=== PATIENT | female | born 1980 | race Caucasian/White ===

== ENCOUNTER 2017-05-03 19:59 | Inpatient (IN) | payer BC ==
[~2017-05-03] VITALS: Ht 167.6 cm; Wt 89.8 kg
[~2017-05-03 19:59] MED LIST: HEMOTAB PO; PREN1CAP7 PO
[2017-05-03 21:27] LABS: BLOOD, URINE NEG (NEG); COMMENT (UR) CULT NOT INDICATED; CULTURE IF INDICATED CULT NOT INDICATED; GLUCOSE,URINE NEG (NEG); KETONE, URINE NEG (NEG); MUCUS URINE FEW /lpf (OCC); NITRITE,URINE NEG (NEG); SQUAMOUS EPITHELIAL CELL URINE 1 /hpf (0-5); URINE COLOR YELLOW (YELLW/STRAW)
[2017-05-03 21:29] LABS: AUTOMATED NEUTROPHIL # 8.1 TH/MM3 (1.8-7.7); BASOPHIL % 0.3 % (0.0-2.0); EOSINOPHIL # 0.1 TH/MM3 (0-0.4); EOSINOPHIL % 0.5 % (0.0-4.0); HEMATOCRIT 35.7 % (35.0-46.0); HEMO FLAGS DIFF FINAL; LYMPHOCYTE # 2.7 TH/MM3 (1.0-4.8); MEAN CELL VOLUME 91.2 FL (80.0-100.0); MEAN CORPUSCULAR HEMOGLOBIN 31.6 PG (27.0-34.0); MEAN CORPUSCULAR HGB CONC 34.7 % (32.0-36.0); MONO % 7.2 % (0.0-8.0); PLATELET COUNT 189 TH/MM3 (150-450); RED BLOOD COUNT 3.92 MIL/MM3 (4.00-5.30); RED CELL DISTRIBUTION WIDTH 13.7 % (11.6-17.2); WHITE BLOOD COUNT 11.7 TH/MM3 (4.0-11.0)
[2017-05-03] MEDS ORDERED: LACTATED RINGER'S 1000 ML INJ 1,000 ML IV SCH (21:33)
[2017-05-03] MEDS ORDERED: LACTATED RINGER'S 1000 ML INJ 1,000 ML IV PRN (21:33)
--- NOTE | 2017-05-03 21:33 | HHI.HP ---
HPI Chief Complaint 40 weeks and 5 days Date Seen: May 03, 2017 Time Seen: 21:25 Travel History International Travel<30 Days: No Contact w/Intl Traveler<30Days: No Known Affected Area: No History of Present Illness HPI Pt is a 36 yo who presents for elective IOL o/a post-term. EDC 04/28/2017 . care with [facility]. previously uncomplicated. GBS negative. Pt reports active vaginal bleeding. No vaginal bleeding or discharge. Weeks Gestation: 40 Para: 1 : 3 History Past Medical History Medical History: Denies Significant Hx Obstetric History Obstetric History Prior term uncomplicated resulting in vaginal delivery Previous 1st trimester miscarriage Past Surgical History Surgical History: No Previous Surgery Family History Family History: Negative Social History Alcohol Use: No Tobacco Use: No Substance Abuse: No Allergies-Medications (Allergen,Severity, Reaction): Coded Allergies: No Known Allergies (Unverified Adverse Reaction, Unknown, 04/29/17) Home Meds Active Scripts Ferrous Fumarate-Folic Acid (Hemocyte-F) 324-1 Mg Tab, 1 TAB PO DAILY for Nutritional Supplement for 30 Days, #30 TAB 1 Refill Prov:Brooke Patricio CNM [facility] 04/18/17 W/O Vit A W/ Fe Fumar (Citranatal Dovray) 27-1-260 Mg Cap, 1 CAP PO DAILY for Nutritional Supplement, #30 CAP 11 Refills Prov:Saida Hsieh [facility] 12/06/16 Review of Systems Except as stated in HPI: all other systems reviewed are Neg Physical Exam Narrative GENERAL: Well-nourished, well-developed patient. SKIN: Warm and dry. HEAD: Normocephalic and atraumatic. EYES: No scleral icterus. No injection or drainage. ENT: No nasal drainage noted. Mucous membranes pink. Airway patent. NECK: Supple, trachea midline. No JVD. CARDIOVASCULAR: Regular rate and rhythm without murmurs, gallops, or rubs. RESPIRATORY: Breath sounds equal bilaterally. No accessory muscle use. BREASTS: Bilateral exam showed no masses , no retractions, no nipple discharge. ABDOMEN/GI: Abdomen soft, non-tender, bowel sounds present, no rebound, no guarding Gravid to [40] weeks size Fundal Height: [40] GENITOURINARY: External Genitalia: intact and normal in appearance BUS glands: [wnl] Cervix: [soft] Dilatation: [2cm] Effacement: [60%] Station: [-3] Presentation: [vertex] Membranes: [ruptured] Uterine Contractions: [none] FHT's: Category: [1] Baseline: [120s] Reactive: [-] Variability: [good] Decels: [none] EXTREMITIES: No cyanosis or edema. BACK: Nontender without obvious deformity. No CVA tenderness. NEUROLOGICAL: Awake and alert. Motor and sensory grossly within normal limits. Five out of 5 muscle strength in all muscle groups. Normal speech. Caprini VTE Risk Assessment Caprini VTE Risk Assessment: No/Low Risk (score <= 1) Caprini Risk Assessment Model Point Value = 1 Point Value = 2 Point Value = 3 Point Value = 5 Age 41-60 Minor surgery BMI > 25 kg/m2 Swollen legs Varicose veins or History of unexplained or recurrent spontaneous Oral contraceptives or hormone replacement Sepsis (< 1 month) Serious lung disease, including pneumonia (< 1 month) Abnormal pulmonary function Acute myocardial infarction Congestive heart failure (< 1 month) History of inflammatory bowel disease Medical patient at bed rest Age 61-74 Arthroscopic surgery Major open surgery (> 45 min) Laparoscopic surgery (> 45 min) Malignancy Confined to bed (> 72 hours) Immobilizing plaster cast Central venous access Age >= 75 History of VTE Family history of VTE Factor V Leiden Prothrombin [id number] Lupus anticoagulant Anticardiolipin antibodies Elevated serum homocysteine Heparin-induced thrombocytopenia Other congenital or acquired thrombophilia Stroke (< 1 month) Elective arthroplasty Hip, pelvis, or leg fracture Acute spinal cord injury (< 1 month) Prophylaxis Regimen Total Risk Factor Score Risk Level Prophylaxis Regimen 0-1 Low Early ambulation 2 Moderate Order ONE of the following: *Sequential Compression Device (SCD) *Heparin 5000 units SQ BID 3-4 Higher Order ONE of the following medications: *Heparin 5000 units SQ TID *Enoxaparin/Lovenox 40 mg SQ daily (WT < 150 kg, CrCl > 30 mL/min) *Enoxaparin/Lovenox 30 mg SQ daily (WT < 150 kg, CrCl > 10-29 mL/min) *Enoxaparin/Lovenox 30 mg SQ BID (WT < 150 kg, CrCl > 30 mL/min) AND/OR *Sequential Compression Device (SCD) 5 or more Highest Order ONE of the following medications: *Heparin 5000 units SQ TID (Preferred with Epidurals) *Enoxaparin/Lovenox 40 mg SQ daily (WT < 150 kg, CrCl > 30 mL/min) *Enoxaparin/Lovenox 30 mg SQ daily (WT < 150 kg, CrCl > 10-29 mL/min) *Enoxaparin/Lovenox 30 mg SQ BID (WT < 150 kg, CrCl > 30 mL/min) AND *Sequential Compression Device (SCD) Data Data Vital Signs Reviewed: Yes Orders Orders Complete Blood Count With Diff (05/03/17 21:02) Abo/Rh Blood Type (05/03/17 21:02) Hold Clot (05/03/17 21:02) Urinalysis - C+S If Indicated (05/03/17 21:02) Specimen To Be Collected PRN (05/03/17 21:02) Drug Screen, Random Urine (05/03/17 21:02) Specimen To Be Collected PRN (05/03/17 21:02) Group B Strep: Negative Labs Laboratory Tests Test 05/03/17 20:15 Assessment/Plan Assessment and Plan 36 yo presents for IOL o/a post-term /maternal status reassuring. Cervix favorable. Will start Pitocin per protocol. AROM when able. May have epidural. Francisco Vee MD May 03, 2017 21:33
[2017-05-03] MEDS ORDERED: OXYTOCIN 30 UNITS-500ML PREMIX 500 ML IV SCH (21:45)
[2017-05-03] MEDS ORDERED: LIDOCAINE HCL 1% 50 ML VIAL I-DERMAL PRN (21:45)
[2017-05-03] MEDS ORDERED: LIDOCAINE HCL 1% 50 ML VIAL INFIL PRN (21:45)
[2017-05-03] MEDS ORDERED: SODIUM CHLORID 0.9% 500 ML INJ 500 ML IV PRN (21:45)
[2017-05-03] MEDS ORDERED: CITRIC ACID-SODIUM CITRATE LIQ 30 ML UDC PO SCH (21:45)
[2017-05-03] MEDS ORDERED: OXYTOCIN 30 UNITS-500ML PREMIX 500 ML IV ONE (21:45)
[2017-05-03] MEDS ORDERED: MINERAL OIL 10 ML VIAL TOPICAL PRN (21:45)
[2017-05-03] MEDS ORDERED: ONDANSETRON HCL 4 MG/2 ML VIAL IV PUSH PRN (21:45)
[2017-05-03] MEDS ORDERED: SODIUM CHLOR 0.9% 1000 ML INJ 1,000 ML IV PRN (21:53)
[2017-05-03 22:17] VITALS: BP 104/74; PULSE 88
[2017-05-03 22:23] VITALS: RESP 16; TEMP 98.8
[2017-05-03 22:30] VITALS: BP 108/68; PULSE 89
[2017-05-03 23:00] VITALS: BP 111/66; PULSE 90
[2017-05-03 23:01] VITALS: RESP 16
[2017-05-03 23:30] VITALS: BP 106/61; PULSE 90
[2017-05-04] VITALS (66 sets, daily range): BP systolic 83–143; BP diastolic 47–86; PULSE 76–131; RESP 12–26; TEMP 97.9–98.6; O2SAT 98–100
[2017-05-04] MEDS ORDERED: fentaNYL 2MCG-BUPIV 0.125% INJ 100 ML ONE (03:36)
[2017-05-04] MEDS ORDERED: ePHEDrine/NS 25 MG/5 ML SYR ONE (03:36)
[2017-05-04] MEDS ORDERED: BUPIVACAINE HCL PF 0.25% 10 ML VIAL ONE (03:43)
[2017-05-04] MEDS ORDERED: fentaNYL 2MCG-BUPIV 0.125% 100 ML EPIDURAL SCH (05:15)
[2017-05-04] MEDS ORDERED: NO SYSTEM NARCOTICS PRN (05:15)
[2017-05-04] MEDS ORDERED: DO NOT ADMINISTER ANTICOAGULANTS PRN (05:15)
[2017-05-04] MEDS ORDERED: ePHEDrine/NS 25 MG/5 ML SYR IV PUSH PRN (05:15)
[2017-05-04] MEDS ORDERED: ceFAZolin INJ 1,000 MG VIAL ONE (05:36)
--- NOTE | 2017-05-04 05:36 | PD.LABORPN ---
Subjective Subjective Pt comfortable after epidural. Objective Vital Signs Vital Signs Date Time Temp Pulse Resp B/P (MAP) Pulse Ox O2 Delivery O2 Flow Rate FiO2 05/04/17 05:18 92 105/65 (78) 05/04/17 05:15 85 100/58 (72) 05/04/17 05:15 83 05/04/17 05:12 82 109/58 (75) 05/04/17 05:10 102 05/04/17 05:09 93 102/54 (70) 05/04/17 05:06 106 117/70 (86) 05/04/17 05:05 81 05/04/17 05:03 78 115/73 (87) 05/04/17 05:00 80 05/04/17 05:00 81 110/70 (83) 05/04/17 04:57 81 114/76 (89) 05/04/17 04:55 86 05/04/17 04:54 83 117/74 (88) 05/04/17 04:52 79 108/47 (67) 05/04/17 04:50 85 05/04/17 04:48 93 110/74 (86) 05/04/17 04:45 80 111/64 (80) 05/04/17 04:45 78 05/04/17 04:42 91 114/63 (80) 05/04/17 04:40 103 05/04/17 04:39 97 114/72 (86) 05/04/17 04:36 114 105/75 (85) 05/04/17 04:35 86 05/04/17 04:33 106 102/65 (77) 05/04/17 04:30 90 106/68 (81) 05/04/17 04:30 119 05/04/17 04:27 131 99/60 (73) 05/04/17 04:25 109 05/04/17 04:24 119 104/64 (77) 05/04/17 04:21 81 122/74 (90) 05/04/17 04:20 81 05/04/17 04:18 127 100/59 (73) 05/04/17 04:17 76 127/76 (93) 05/04/17 04:15 103 122/75 (91) 05/04/17 04:15 84 05/04/17 04:13 105 112/72 (85) 05/04/17 04:12 90 85/52 (63) 05/04/17 04:11 93 105/67 (80) 05/04/17 04:10 110 05/04/17 04:10 99 83/54 (64) 05/04/17 04:09 116 105/61 (76) 05/04/17 04:06 98 143/76 (98) 05/04/17 04:05 104 05/04/17 04:01 85 132/86 (101) 05/04/17 04:00 87 05/04/17 03:30 94 118/71 (87) 05/04/17 03:01 85 116/55 (75) 05/04/17 02:53 97.9 16 05/04/17 02:30 81 113/71 (85) 05/04/17 02:00 83 109/67 (81) 05/04/17 01:14 82 106/66 (79) 05/04/17 01:00 78 93/54 (67) 05/04/17 00:30 82 111/61 (78) 05/04/17 00:00 80 94/60 (71) 05/03/17 23:30 90 106/61 (76) 05/03/17 23:01 16 05/03/17 23:00 90 111/66 (81) 05/03/17 22:30 89 108/68 (81) 05/03/17 22:23 98.8 16 05/03/17 22:17 88 104/74 (84) Objective Pelvic Exam: Cervix: [soft] Dilatation: [5cm] Effacement: [80%] Station: [-2] Presentation: [vertex] Membranes: [intact or ruptured] Uterine Contractions: [every 4 minutes] FHT's: Category: [2] Baseline: [130s] Reactive: [-] Variability: [good] Decels: [repetitive late decelerations, despite discontinuing Pitocin, nasal Oxygen,position change,amnioinfusion.] Weeks Gestation: 40 Assessment/Plan Assessment and Plan 36 yo post-term labor. NRFHR with persistent Cat 2 tracing despite intrapartum resuscitation. Will proceed to primary C section Francisco Vee MD May 04, 2017 05:36
[2017-05-04] MEDS ORDERED: EPIDURAL-NO SYSTEMIC NARCOTICS PRN (06:40)
[2017-05-04] MEDS ORDERED: EPIDURAL-DIPHENHYDRAMINE HCL 50 MG/ML VIAL IV PUSH PRN (06:40)
[2017-05-04] MEDS ORDERED: EPIDURAL-NALOXONE HCL 0.4 MG/ML AMP IV PUSH PRN (06:40)
[2017-05-04] MEDS ORDERED: EPIDURAL-DO NOT ADMINISTER ANTICOAGULANTS PRN (06:40)
[2017-05-04] MEDS ORDERED: EPIDURAL-DIPHENHYDRAMINE HCL 50 MG CAP PO PRN (06:40)
[2017-05-04] MEDS ORDERED: ACETAMINOPHEN 1000 MG/100 ML 100 ML IV ONE ×2 (07:00→07:01)
[2017-05-04] MEDS ORDERED: OXYTOCIN 30 UNITS-500ML PREMIX 500 ML IV ONE (07:30)
[2017-05-04] MEDS ORDERED: SODIUM CHLORIDE 0.9% FLUSH 10 ML FLUSH IV FLUSH PRN ×2 (07:30)
[2017-05-04] MEDS ORDERED: KETOROLAC TROMETHAMINE 60 MG/2 ML (IM) VIAL IM PRN (07:30)
[2017-05-04] MEDS ORDERED: ZOLPIDEM TARTRATE 5 MG TAB PO PRN (07:30)
[2017-05-04] MEDS ORDERED: ACETAMINOPHEN 325 MG TAB PO PRN (07:30)
--- NOTE | 2017-05-04 07:30 | PD.OB.DELI ---
Procedure Note Section Procedure Pre Op Diagnosis: (1) Postmaturity , 40-42 weeks gestation (2) Non-reassuring heart rate with late deceleration Post Op Diagnosis: (1) Postmaturity , 40-42 weeks gestation (2) Non-reassuring heart rate with late deceleration Performed by Francisco Vee Procedure: Primary Low Transverse Sec Indication for delivery: Nonreassuring heart tracing Previous condition: None Informed consent obtained: For anesthesia, For procedure Confirmed correct: Patient, Time-out taken Anesthesia: Epidural Medication prior to procedure: As documented in eMAR, Antacids, Antibiotics, IV Monitoring during procedure: Blood pressure monitoring, gettering operator, Pulse oximetry Urinary catheter: Inserted using sterile technique Sterile preparation: With 2% chlorexidine (Hibiclens) Operative Features Skin Incision: Transverse Uterine Incision: Low transverse w/knife / blunt ext Membranes Ruptured: Previously, Appearance of fluid (clear) Presentation: Occiput anterior Delivery date: May 04, 2017 Delivery time: 06:03 : Female One Minute : 8 Five Minute : 8 Weight: 3990 Status of : Viable, Umbilical cord Placenta delivered: Intact Medications: Antibiotics, Oxytocin Estimated blood loss: 500cc Procedure tolerated: Well Maternal Condition: Stable Condition: Stable Procedure in detail Patient was brought into OR where she was properly identified and informed consent verified. She was placed in a dorsal supine position with a slight leftward tilt. Ashton catheter had previously been inserted and allowed to drain continuously under gravity throughout the case. Her epidural anesthesia was then redosed. Patient was then cleansed and draped in standard sterile fashion. After confirming adequacy of anesthesia , a pfannensteil incision was made with scalpel, and then taken through the subcutaneous tissue using Bovie cautery. The rectus fascia was scored in the midline, and then extended bilaterally using curved Blackburn scissors. The rectus fascia was then elevated between Kocker clamps and dissected off from the underlying rectus muscles.This was then for superior and inferior aspects of the incision. the rectus muscles was then in midline bluntly, and underlying peritoneum identified, tented with hemostats, entered sharply with Tiago, and the peritoneal incision was extended superiorly and inferiorly with careful visualization of the bladder. Bladder blade was then inserted and vesico-uterine reflection identified, tented with pick-ups and then extended bilaterally. Incision was made over RADHA with frsh scalpel and amniotomy completed with clear fluid. Infant was delivered from ROT position without difficulty, and and after delayed cord clamp, was passed to waiting Worm Picker. Placenta/membranes were delivered spont, complete, with 3 vessel cord. Uterus was exteriorized and cleansed of all clots and debris. We then closed uterus in 3 layers, first of 0 Vicryl in continuous locking fashion for hemostasis and the second of the same suture material that was used to imbricate the first. After confirmed hemostasis at the angles, the vesicouterine reflection was reapproximated using 2.0 Vicryl. Uterus was then returned to its intraperitoneal location, and gutters cleansed of all clots and debris. Interceed adhesion barrier was placed over the incision and uterine body. Parietal peritoneum was then closed with 2.0 Vicryl and same suture used to reapproximate the edges of the rectus muscles in the midline. The rectus fascia was closed using 1 PDS, and the subcutaneous tissue was closed with 2.0 Vicryl and finally skin closed with 3.0 Monocryl in subcuticular fashion. Patient tolerated procedure well and transferred stable to recovery. Francisco Vee MD May 04, 2017 07:30
[2017-05-04] MEDS ORDERED: INFLUENZA VIRUS VACCINE (QUADRIVALENT) 0.5 ML SYR IM ONE (09:00)
[2017-05-04] MEDS ORDERED: LACTATED RINGER'S 1000 ML INJ 1,000 ML IV SCH (12:30)
[2017-05-04] MEDS: ACETAMINOPHEN 1000 MG/100 ML 100 ML IV SCH ×2 (15:30→22:55)
[2017-05-04] MEDS ORDERED: OXYTOCIN 30 UNITS-500ML PREMIX 500 ML IV PRN (17:30)
[2017-05-04] MEDS: IBUPROFEN 600 MG TAB PO PRN (20:13)
[2017-05-05] MEDS: IBUPROFEN 600 MG TAB PO PRN ×3 (02:33→17:55)
[2017-05-05 04:00] VITALS: BP 110/75; PULSE 80; RESP 18; TEMP 97.9
[2017-05-05 08:02] LABS: AUTOMATED NEUTROPHIL # 11.6 TH/MM3 (1.8-7.7); BASOPHIL % 0.2 % (0.0-2.0); EOSINOPHIL % 0.2 % (0.0-4.0); HEMATOCRIT 26.9 % (35.0-46.0); HEMO FLAGS DIFF FINAL; LYMPH % 11.4 % (9.0-44.0); LYMPHOCYTE # 1.6 TH/MM3 (1.0-4.8); MEAN CELL VOLUME 91.7 FL (80.0-100.0); MEAN CORPUSCULAR HEMOGLOBIN 32.8 PG (27.0-34.0); MEAN CORPUSCULAR HGB CONC 35.7 % (32.0-36.0); MONO % 8.2 % (0.0-8.0); PLATELET COUNT 143 TH/MM3 (150-450); RED BLOOD COUNT 2.94 MIL/MM3 (4.00-5.30); RED CELL DISTRIBUTION WIDTH 13.8 % (11.6-17.2); WHITE BLOOD COUNT 14.5 TH/MM3 (4.0-11.0)
--- NOTE | 2017-05-05 08:36 | HHI.OB ---
Subjective Post Operative Day: 1 Remarks Postoperative day number 1. AFVSS overnight. Pain controlled with medications. Incision not draining. Decreased lochia. Denies dysuria. No breast tenderness. Appetite good. No nausea or vomiting. Endorses flatus. No bowel movement. Ambulating well. Denies calf pain, shortness of breath, or cough. Otherwise, she is doing well this morning and has no other complaints. (Nir Tripp MD, R2) Remarks Patient seen and evaluated with resident under direct supervision, agree with assessment and plan. (Tarun Austin MD) Objective Vitals/I&O Vital Signs Date Time Temp Pulse Resp B/P (MAP) Pulse Ox O2 Delivery O2 Flow Rate FiO2 05/05/17 04:00 97.9 80 18 110/75 (87) 05/04/17 23:45 103 18 88/59 (69) 05/04/17 23:45 98.5 05/04/17 20:13 98.6 109 18 119/71 (87) (Nir Tripp MD, R2) Result Diagram: 05/05/17 0753 Objective Remarks GENERAL: Well-nourished, well-developed patient. CARDIOVASCULAR: Regular rate and rhythm without murmurs, gallops, or rubs. RESPIRATORY: Breath sounds equal bilaterally. No accessory muscle use. ABDOMEN/GI: Abdomen soft, non-tender, bowel sounds present. Incision: Clean, dry and intact. Fundus: Firm, non-tender at umbilicus. GENITOURINARY: Light to moderate bleeding. EXTREMITIES: No cyanosis or edema, non-tender, without signs of DVT. Medications and IVs Current Medications Medications (Trade) Dose Ordered Sig/Vivek Route Start Time Stop Time Status Last Admin Lactated Ringer's 1,000 ml @ 125 mls/hr Q8H IV 05/03/17 21:33 05/03/17 22:05 Lactated Ringer's 1,000 ml @ 3,000 mls/hr Q20M PRN IV 05/03/17 21:33 Sodium Chloride 500 ml @ 1,000 mls/hr ONCE PRN IV 05/03/17 21:45 05/10/17 21:44 Sodium Chloride 1,000 ml @ 100 mls/hr Q10H PRN IV 05/03/17 21:53 (Xylocaine 1% Inj (50 ml)) 0.1 ml UNSCH X1 PRN I-DERMAL 05/03/17 21:45 05/06/17 21:44 (Bicitra Liq) 30 ml ACTIVITIES COUNSELOR PO 05/03/17 21:45 05/07/17 21:44 (Zofran Inj) 4 mg Q6H PRN IV PUSH 05/03/17 21:45 (fentaNYL INJ) 50 mcg Q1H PRN IV PUSH 05/03/17 21:45 (fentaNYL INJ) 100 mcg Q1H PRN IV PUSH 05/03/17 21:45 (Xylocaine 1% Inj (50 ml)) 10 ml UNSCH X1 PRN INFIL 05/03/17 21:45 05/05/17 21:44 (Muri-Lube Oil) 10 ml UNSCH PRN TOPICAL 05/03/17 21:45 Oxytocin 500 ml @ 0 mls/hr TITRATE IV 05/03/17 21:45 05/03/17 22:05 Fentanyl/ Bupivacaine HCl 100 ml @ 0 mls/hr TITRATE EPIDURAL 05/04/17 05:15 Oxytocin 500 ml @ 100 mls/hr UNSCH X1 PRN IV 05/04/17 17:30 05/05/17 17:29 (Mylicon Chew) 80 mg QID PRN PO 05/04/17 07:30 (Tylenol) 650 mg Q6H PRN PO 05/04/17 07:30 (Motrin) 600 mg Q6H PRN PO 05/04/17 07:30 05/05/17 02:33 (Ambien) 5 mg HS PRN PO 05/04/17 07:30 (Boostrix Inj) 0.5 ml ONCE ONCE IM 05/05/17 16:00 05/05/17 16:01 (NS Flush) 2 ml UNSCH PRN IV FLUSH 05/04/17 07:30 (NS Flush) 2 ml UNSCH PRN IV FLUSH 05/04/17 07:30 (Nir Tripp MD, R2) Assessment/Plan Assessment and Plan 37y/o female who is POD# 1 s/p CXN. -Continue routine care. -Percocet and Motrin PRN pain. -Encouraged OOB. Advised pelvic rest for 6 wks. Will need a f/u appt. in 1 wk for incision check. -Re: ctrl, she is undecided -D/c in 1-2 more days. (Nir Tripp MD, R2) Nir Tripp MD, R2 May 05, 2017 08:36 Tarun Austin MD May 05, 2017 09:01
[2017-05-05] MEDS ORDERED: oxyCODONE/ACETAMINOPHEN 5 MG/325 MG TAB PO PRN (11:30)
[2017-05-05] MEDS: oxyCODONE/ACETAMINOPHEN 5 MG/325 MG TAB PO PRN ×2 (11:47→17:56)
[2017-05-05] MEDS: SIMETHICONE 80 MG CHEWABLE TAB PO PRN ×2 (11:47→17:56)
[2017-05-05] MEDS ORDERED: DIPHTH/TETANUS/ACEL PERTUSSIS (BOOSTER) 0.5 ML VIAL/PFS IM ONE (16:00)
[2017-05-05 22:47] VITALS: BP 112/68; PULSE 102; RESP 17; TEMP 98.2
[2017-05-06] MEDS: IBUPROFEN 600 MG TAB PO PRN ×4 (00:49→22:00)
[2017-05-06] MEDS: oxyCODONE/ACETAMINOPHEN 5 MG/325 MG TAB PO PRN ×3 (00:49→21:59)
--- NOTE | 2017-05-06 07:15 | HHI.OB ---
Subjective Post Operative Day: 2 Remarks Ms Shen had no acute events overnight. She is tolerating PO, ambulating without dizziness but is a little sore. Objective Vitals/I&O Vital Signs Date Time Temp Pulse Resp B/P (MAP) Pulse Ox O2 Delivery O2 Flow Rate FiO2 05/05/17 22:47 98.2 102 17 112/68 (83) Result Diagram: 05/05/17 0753 Objective Remarks GENERAL: Well-nourished, well-developed patient. CARDIOVASCULAR: Regular rate and rhythm without murmurs, gallops, or rubs. RESPIRATORY: Breath sounds equal bilaterally. No accessory muscle use. ABDOMEN/GI: Abdomen soft, non-tender, bowel sounds present. Incision: Clean, dry and intact. Fundus: Firm, non-tender at umbilicus. GENITOURINARY: Light to moderate bleeding. EXTREMITIES: No cyanosis or edema, non-tender, without signs of DVT. Medications and IVs Current Medications Medications (Trade) Dose Ordered Sig/Vivek Route Start Time Stop Time Status Last Admin Lactated Ringer's 1,000 ml @ 125 mls/hr Q8H IV 05/03/17 21:33 05/03/17 22:05 Lactated Ringer's 1,000 ml @ 3,000 mls/hr Q20M PRN IV 05/03/17 21:33 Sodium Chloride 500 ml @ 1,000 mls/hr ONCE PRN IV 05/03/17 21:45 05/10/17 21:44 Sodium Chloride 1,000 ml @ 100 mls/hr Q10H PRN IV 05/03/17 21:53 (Xylocaine 1% Inj (50 ml)) 0.1 ml UNSCH X1 PRN I-DERMAL 05/03/17 21:45 05/06/17 21:44 (Bicitra Liq) 30 ml UNDRAPED ARTIST MODEL PO 05/03/17 21:45 05/07/17 21:44 (Zofran Inj) 4 mg Q6H PRN IV PUSH 05/03/17 21:45 (Muri-Lube Oil) 10 ml UNSCH PRN TOPICAL 05/03/17 21:45 Oxytocin 500 ml @ 0 mls/hr TITRATE IV 05/03/17 21:45 05/03/17 22:05 Fentanyl/ Bupivacaine HCl 100 ml @ 0 mls/hr TITRATE EPIDURAL 05/04/17 05:15 (Mylicon Chew) 80 mg QID PRN PO 05/04/17 07:30 05/05/17 17:56 (Tylenol) 650 mg Q6H PRN PO 05/04/17 07:30 (Motrin) 600 mg Q6H PRN PO 05/04/17 07:30 05/06/17 00:49 (Ambien) 5 mg HS PRN PO 05/04/17 07:30 (NS Flush) 2 ml UNSCH PRN IV FLUSH 05/04/17 07:30 (NS Flush) 2 ml UNSCH PRN IV FLUSH 05/04/17 07:30 (Percocet 5-325 Mg) 1 tab Q4H PRN PO 05/05/17 11:30 05/06/17 00:49 (Percocet 5-325 Mg) 2 tab Q4H PRN PO 05/05/17 11:30 Assessment/Plan Assessment and Plan 37y/o female who is POD# 1 s/p CXN. -Continue routine care. -Percocet and Motrin PRN pain. -Encouraged OOB. Advised pelvic rest for 6 wks. Will need a f/u appt. in 1 wk for incision check. -Re: ctrl, she is undecided -D/c in 1-2 more days. Billy Birmingham MD R1 May 06, 2017 07:15
[2017-05-06 08:45] VITALS: BP 111/75; PULSE 90; RESP 16; TEMP 98.7
[2017-05-06 19:41] VITALS: BP 114/76; PULSE 101; RESP 18; TEMP 98.1
[2017-05-07] MEDS ORDERED: IBUP-232 PO (08:28)
[2017-05-07] MEDS ORDERED: OXYC1TAB63 PO (08:28)
[2017-05-07] MEDS ORDERED: Simethicone Chew PO (08:28)
--- NOTE | 2017-05-07 08:31 | HHI.DCPOC ---
Discharge Care Plan Diagnosis: (1) delivery delivered (2) Postmaturity , 40-42 weeks gestation Report Symptoms to Your Doctor -Temperature above 100.5 degrees -Redness, of incision or excessive or foul smelling drainage -Unusual pain or calf pain -Increased vaginal bleeding -Painful or difficulty urinating -Feelings of extreme sadness or anxiety after 2 weeks Goals to Promote Your Health * To prevent worsening of your condition and complications * To maintain your health at the optimal level Directions to Meet Your Goals Take your medications as prescribed Follow your dietary instruction Follow activity as directed Ensure plenty of rest for recovery Drink fluids for hydration Keep your appointments as scheduled Take your immunizations and boosters as scheduled If your symptoms worsen call your PCP, if no PCP go to Urgent Care Center or Emergency Room Smoking is Dangerous to Your Health. Avoid second hand smoke Call the 24-hour crisis hotline for domestic abuse at Keli Pichardo MD R2 May 07, 2017 08:31
[2017-05-07 09:00] VITALS: BP 117/76; PULSE 95; RESP 20; TEMP 98.3
--- NOTE | 2017-05-07 09:00 | HHI.OB ---
Subjective Post Operative Day: 3 Remarks Postoperative day #3. AFVSS overnight. Pain well-controlled. Incision clean, dry , and intact, not draining. Lochia less than a period. Denies dysuria. No breast tenderness. Appetite good. No nausea or vomiting. Positive flatus. Positive bowel movement. Ambulating well. Denies fever, chills, cough, shortness of breath, chest pain, and calf pain. Otherwise, she is doing well this morning and has no other complaints. Objective Vitals/I&O Vital Signs Date Time Temp Pulse Resp B/P (MAP) Pulse Ox O2 Delivery O2 Flow Rate FiO2 05/06/17 19:41 98.1 101 18 114/76 (89) Result Diagram: 05/05/17 0753 Objective Remarks GENERAL: Well-nourished, well-developed patient. CARDIOVASCULAR: Regular rate and rhythm without murmurs, gallops, or rubs. RESPIRATORY: Breath sounds equal bilaterally. No accessory muscle use. ABDOMEN/GI: Abdomen soft, non-tender, bowel sounds present. Incision: Clean, dry and intact. Fundus: Firm, non-tender below umbilicus. GENITOURINARY: Light to moderate bleeding. EXTREMITIES: No cyanosis or edema, non-tender, without signs of DVT. Medications and IVs Current Medications Medications (Trade) Dose Ordered Sig/Vivek Route Start Time Stop Time Status Last Admin Lactated Ringer's 1,000 ml @ 125 mls/hr Q8H IV 05/03/17 21:33 05/03/17 22:05 Lactated Ringer's 1,000 ml @ 3,000 mls/hr Q20M PRN IV 05/03/17 21:33 Sodium Chloride 500 ml @ 1,000 mls/hr ONCE PRN IV 05/03/17 21:45 05/10/17 21:44 Sodium Chloride 1,000 ml @ 100 mls/hr Q10H PRN IV 05/03/17 21:53 (Bicitra Liq) 30 ml MECHANICAL SHOVEL OPERATOR PO 05/03/17 21:45 05/07/17 21:44 (Zofran Inj) 4 mg Q6H PRN IV PUSH 05/03/17 21:45 (Muri-Lube Oil) 10 ml UNSCH PRN TOPICAL 05/03/17 21:45 Oxytocin 500 ml @ 0 mls/hr TITRATE IV 05/03/17 21:45 05/03/17 22:05 Fentanyl/ Bupivacaine HCl 100 ml @ 0 mls/hr TITRATE EPIDURAL 05/04/17 05:15 (Mylicon Chew) 80 mg QID PRN PO 05/04/17 07:30 05/05/17 17:56 (Tylenol) 650 mg Q6H PRN PO 05/04/17 07:30 (Motrin) 600 mg Q6H PRN PO 05/04/17 07:30 05/06/17 22:00 (Ambien) 5 mg HS PRN PO 05/04/17 07:30 (NS Flush) 2 ml UNSCH PRN IV FLUSH 05/04/17 07:30 (NS Flush) 2 ml UNSCH PRN IV FLUSH 05/04/17 07:30 (Percocet 5-325 Mg) 1 tab Q4H PRN PO 05/05/17 11:30 05/06/17 21:59 (Percocet 5-325 Mg) 2 tab Q4H PRN PO 05/05/17 11:30 Assessment/Plan Assessment and Plan 37y/o female who is POD# 3 s/p CXN. -Continue routine care. -Percocet and Motrin PRN pain. -Pericolase PRN for constipation -Encouraged OOB. Advised pelvic rest for 6 wks. Will need a f/u appt. in 1 wk for incision check. -Re: ctrl, she is undecided Discussed with Dr. Barrett Discharge Planning Discharge home today Keli Pichardo MD R2 May 07, 2017 09:00
[2017-05-07] MEDS: IBUPROFEN 600 MG TAB PO PRN (09:24)
== END 2017-05-07 10:54 | disposition home or self-care (01) | DRG 766 ==
LOC: H2EB 19:59 → H1EA 05-04 08:25
PROVIDERS: ADMIT Obstetrics & Gynecology; ATTEND Obstetrics & Gynecology
PROC: 3E0P3VZ Introduction of Hormone into Female Reproductive, Percutaneous Approach (ICD-10-PCS; 2017-05-03)
PROC: 10D00Z1 Extraction of Products of Conception, Low, Open Approach (ICD-10-PCS; principal; 2017-05-04)
PROC: 3E0E7GC Introduction of Other Therapeutic Substance into Products of Conception, Via Natural or Artificial Opening (ICD-10-PCS; 2017-05-04)
PROC: 3E0R3BZ Introduction of Anesthetic Agent into Spinal Canal, Percutaneous Approach (ICD-10-PCS; 2017-05-04)
PROC: 00HU33Z Insertion of Infusion Device into Spinal Canal, Percutaneous Approach (ICD-10-PCS; 2017-05-04)
DX: O48.0 Post-term pregnancy (principal); O76 Abnormality in fetal heart rate and rhythm complicating labor and delivery; Z3A.40 40 weeks gestation of pregnancy; Z37.0 Single live birth; Z23 Encounter for immunization
CPT/HCPCS: 80307; 81001; 85025; 86900; 86901; 90686; 90715; J0131; J0690; J2590; J7120; Q2038